=== PATIENT | male | born 1985 | race Hispanic/Latino ===

== ENCOUNTER 2017-05-31 01:19 | Emergency (ER) | payer OTHER ==
[2017-05-31 02:03] VITALS: RESP 17; TEMP 97.5; O2SAT 99
[2017-05-31 02:23] VITALS: BP 150/79; PULSE 63
[2017-05-31 03:21] LABS: BASO # 0.2 K/uL (0.0-0.2); EOS # 0.2 K/uL (0.0-0.7); HEMOGLOBIN 16.8 g/dL (12.0-18.0); LYMPH # 3.4 K/uL (1.0-4.3); LYMPH % 44.4 % (20.0-40.0); MEAN CELL VOLUME 92.1 fl (80.0-94.0); MEAN CORPUSCULAR HEMOGLOBIN 32.3 pg (27.0-31.0); MEAN CORPUSCULAR HGB CONC 35.1 g/dL (33.0-37.0); MEAN PLATELET VOLUME 9.4 fl (7.2-11.7); MONO # 0.9 K/uL (0.0-0.8); MONO % 11.1 % (0.0-10.0); NEUT # 3.1 K/uL (1.8-7.0); NEUT % 40.5 % (50.0-75.0); NRBC % 0.1 % (0.0-0.0); RBC 5.22 Mil/uL (4.40-5.90); RED CELL DISTRIBUTION WIDTH 12.9 % (11.5-14.5); WHITE BLOOD COUNT 7.7 K/uL (4.8-10.8)
[2017-05-31 03:30] LABS: ALB/GLOB RATIO 1.3 (1.0-2.1); ALBUMIN 4.8 g/dL (3.5-5.0); ALT/SGPT 64 U/L (21-72); AST/SGOT 43 U/L (17-59); BLOOD UREA NITROGEN 19 mg/dl (9-20); CALCIUM 10.1 mg/dL (8.4-10.2); GFR AFRICAN-AMERICAN > 60; GFR NON-AFRICAN AMERICAN > 60
[2017-05-31] MEDS ORDERED: Sodium Chloride 0.9% 100 ML ONE (03:40)
[2017-05-31 03:41] LABS: BARBITURATES, UR NEGATIVE (NEGATIVE); BENZODIAZEPINES, UR NEGATIVE (NEGATIVE); OPIATES, UR NEGATIVE (NEGATIVE); PHENCYCLIDINE, UR NEGATIVE (NEGATIVE)
[2017-05-31] MEDS ORDERED: Iodixanol 320 MG/ML 100 ML BOTTLE IV ONE (03:41)
--- NOTE | 2017-05-31 04:04 | ED PDOC ---
HPI: Chest Pain Time Seen by Provider: 05/31/17 02:21 Chief Complaint (Nursing): Chest Pain Chief Complaint (Provider): Chest Pain History Per: Patient History/Exam Limitations: no limitations Onset/Duration Of Symptoms: Hrs (x2), Sudden Onset Current Symptoms Are (Timing): Still Present Associated Symptoms: denies: Nausea, Diaphoresis Additional Complaint(s): 32 year old male presents to ED with complaints of acute onset chest pain x2 hours and has no past medical history. (-) nausea, vomiting, or diaphoresis. States that onset of pain occurred while lying down. Reports pain worsens with movement and radiates to mid back. PCP: Non [facility]PH Past Medical History Reviewed: Historical Data, Nursing Documentation, Vital Signs Vital Signs: Last Vital Signs Temp 97.5 F L 05/31/17 01:56 Pulse 63 05/31/17 02:18 Resp 17 05/31/17 01:56 BP 150/79 05/31/17 02:18 Pulse Ox 99 05/31/17 04:56 - Medical History PMH: No Chronic Diseases - Surgical History Surgical History: No Surg Hx - Family History Family History: States: Unknown Family Hx - Social History Current smoker - smoking cessation education provided: Yes (quit 2 months ago) Drugs: Cannabis, Cocaine (hasn't used recently) - Immunization History Hx Tetanus Toxoid Vaccination: No Hx Influenza Vaccination: No Hx Pneumococcal Vaccination: No - Allergies Allergies/Adverse Reactions: Allergies Allergy/AdvReac Type Severity Reaction Status Date / Time No Known Allergies Allergy Verified 05/31/17 01:55 DANNY Risk Score for UA/NSTEMI - DANNY Risk Score Age > 64: NO Known CAD (Stenosis greater than 50%): NO Aspirin use in past 7 days: NO DANNY Score: 0 Risk %: 5% Curb-65 Severity Score - CURB-65 Severity Score Confusion: No Respiratory Rate greater than/equal to 30: No Systolic BP <90 or Diastolic BP less than/equal 60mmHg: No Age >64: No Curb-65 Score: 0 Percentage 30-day mortality: 0.6% Wells Criteria for PE - Wells Criteria for Pulmonary Embolism Heart Rate >100: No Immobilization at least 3 days;Surgery previous 4 weeks: No Previous, objectively diagnosed PE or DVT: No Hemoptysis: No Malignancy w/treatment within 6 months, or palliative: No Total Score: 0 Review of Systems ROS Statement: Except As Marked, All Systems Reviewed And Found Negative Constitutional: Negative for: Sweats Cardiovascular: Positive for: Chest Pain Gastrointestinal: Negative for: Nausea, Vomiting Musculoskeletal: Positive for: Back Pain (pain radiates to mid back) Physical Exam - Reviewed Nursing Documentation Reviewed: Yes Vital Signs Reviewed: Yes - Physical Exam Appears: Positive for: Non-toxic, No Acute Distress Skin: Positive for: Normal Color, Warm, Dry Eye Exam: Positive for: Normal appearance, EOMI, PERRL Neck: Positive for: Normal Cardiovascular/Chest: Positive for: Regular Rate, Rhythm, Murmur Respiratory: Positive for: Normal Breath Sounds. Negative for: Respiratory Distress Gastrointestinal/Abdominal: Positive for: Soft. Negative for: Tenderness Back: Positive for: Normal Inspection Extremity: Positive for: Normal ROM. Negative for: Deformity Neurologic/Psych: Positive for: Alert, Oriented. Negative for: Motor/Sensory Deficits - Laboratory Results Result Diagrams: 05/31/17 03:16 05/31/17 03:16 - ECG O2 Sat by Pulse Oximetry: 99 (RA) Pulse Ox Interpretation: Normal Medical Decision Making Medical Decision Makin Initial impression: chest pain Initial plan: * Acetaminophen * Labs * UDrug Screen * Trop I * D Dimer * CXR * Toradol 30mg IV * Re-eval 0335 Labs reviewed: D Dimer deranged. CXR: NAD * CT ANGIO CHEST 0449 CT FINDINGS No emboli in the main pulmonary arteries. No pulmonary emboli identified distally although evaluation is slightly limited by bolus timing and patient motion. No aortic dissection or aneurysm. No pleural or pericardial effussions. There is a 3 x 4 mm nodule in the right midlung series 4 image 115 that I believe is located along the minor fissure. Recommend correlation with priors if they exist. Follow up based on Aby criteria. IMPRESSION: No acute findings. Upon re-evaluation patient notes improvement in symptoms and is stable for discharge home. Provider advises patient follows up with PCP in next 1-2 days. Return precautions given. Dx: atypical chest pain Condition: stable Scribe Attestation: Documented by Zuleyka Taveras acting as a scribe for Nuno Doe MD. Scribe Attestation: All medical record entries made by the Scribe were at my direction and personally dictated by me. I have reviewed the chart and agree that the record accurately reflects my personal performance of the history, physical exam, medical decision making, and the department course for this patient. I have also personally directed, reviewed, and agree with the discharge instructions and disposition. Disposition - Clinical Impression Clinical Impression: Atypical chest pain - Patient ED Disposition Is Patient to be Admitted: No - Disposition Disposition: Routine/Home Disposition Time: 04:55 Condition: STABLE Instructions: Chest Pain Forms: [employer] ([place])
--- NOTE | 2017-05-31 04:49 | CT ---
EXAM: CT Angiography Chest With Intravenous Contrast EXAM DATE/TIME: 05/31/2017 3:35 AM CLINICAL HISTORY: 32 years old, male; Pain; Chest pain; Additional info: Chest pain R/O pe TECHNIQUE: Axial computed tomographic angiography images of the chest with intravenous contrast using pulmonary embolism protocol. All CT scans at this facility use one or more dose reduction techniques, viz.: automated exposure control; ma/kV adjustment per patient size (including targeted exams where dose is matched to indication; i.e. head); or iterative reconstruction technique. MIP reconstructed images were created and reviewed. Coronal and sagittal reformatted images were created and reviewed. CONTRAST: 98 mL of [id number] administered intravenously. COMPARISON: CR - CHEST PORTABLE 2017-05-31 02:55 FINDINGS: No emboli in the main pulmonary arteries. No pulmonary emboli identified distally although evaluation is slightly limited by bolus timing and patient motion. No aortic dissection or aneurysm. No pleural or pericardial effussions. There is a 3 x 4 mm nodule in the right midlung series 4 image 115 that I believe is located along the minor fissure. Recommend correlation with priors if they exist. Follow up based on Aby criteria. IMPRESSION: No acute findings.
--- NOTE | 2017-05-31 09:30 | RAD ---
HISTORY: chest pain COMPARISON: No prior. FINDINGS: LUNGS: No active pulmonary disease. PLEURA: No significant pleural effusion identified, no pneumothorax apparent. CARDIOVASCULAR: Normal. OSSEOUS STRUCTURES: No significant abnormalities. VISUALIZED UPPER ABDOMEN: Normal. OTHER FINDINGS: None. IMPRESSION: No active disease.
== END 2017-05-31 05:30 | disposition home or self-care (01) ==
LOC: H.ER 01:19
DX: R07.89 Other chest pain (principal)
CPT/HCPCS: 71045; 71275; 80053; 80324; 80329; 80345; 80346; 80349; 80353; 80358; 80361; 83992; 84484; 85025; 85378; 96374; 99283; J1885; Q9967